=== PATIENT | male | born 1970 | race Caucasian/White ===

== ENCOUNTER 2021-05-23 16:39 | Emergency (ER) | payer SELFPAY ==
[2021-05-23] VITALS (7 sets, daily range): BP systolic 73–137; BP diastolic 59–116; PULSE 154–178; RESP 14–34; TEMP 36.7; O2SAT 84–100; BMI 31.2
[2021-05-23] MEDS: Ondansetron 4 MG/2 ML Vial IV (16:50)
[2021-05-23] MEDS: Morphine 4 MG/ML Syringe IV (16:50)
--- NOTE | 2021-05-23 16:52 | RAD_ITS ---
HISTORY: TRAUMA EXAMINATION/TECHNIQUE: XR Pelvis 1 or 2 Views: AP pelvis COMPARISON: None FINDINGS: Large backboard artifact. No definite fracture or dislocation. No other radiodense foreign bodies. Increased density over the left proximal thigh consistent possible soft tissue edema. RAD/Pelvis 1 or 2 Views IMPRESSION: No acute bony abnormality on single frontal view. If there are left hip symptoms recommend dedicated left hip views. at 1751 Reported and signed by: Jose Elder MD Electronically Signed: Jose Elder MD at 17:50 EDT Tel , Service support ,
--- NOTE | 2021-05-23 16:52 | RAD_ITS ---
STUDY: X-RAY CHEST REASON FOR EXAM: Male, 50 years old. TRAUMA TECHNIQUE: Frontal portable view of the chest COMPARISON: None. FINDINGS: Examination is technically limited. There is left chest wall emphysema and probably large pneumothorax. There is possibly left mediastinum. There are multiple left lateral rib fractures. There is lucency in the right lower lung, possibly anterior pneumothorax versus artifact. Cardiac size is normal. RAD/Chest 1 View (Portable) IMPRESSION: 1. Large left pneumothorax multiple left rib fractures. Electronically Signed: Prashant Leums MD at 17:30 EDT Tel , Service support ,
[2021-05-23] MEDS: Etomidate 20 MG/10 ML Vial IV (16:53)
[2021-05-23] MEDS: Rocuronium Bromide 50 MG/5 ML Vial 100 MG IV (16:53)
--- NOTE | 2021-05-23 16:54 | ED.RN ---
DR. BREWER ORDERS FOR RSI. PT MEDICATED 20MG ETOMIDATE IVP BY CESIA, RN 100MG ROCURIONIUM IVP BY CESIA RN AT 165. ANCEF IV PIGGYBACK THROUGH RIGHT ARM. GLIDESCOPE AT BEDSIDE. INTUBATED BY DR. BREWER AT 1655, SIZE 8CM TUBE, AND 21CM AT LIP. BVM AT 90% SPO2 AT 15L. CHEST TUBE PREP ON LEFT SIDE OF CHEST.
--- NOTE | 2021-05-23 17:00 | RAD_ITS ---
HISTORY: CHEST TUBE PLACEMENT, ETT AND OG PLACEMENT, TRAUMA EXAMINATION/TECHNIQUE: XR Chest 1 View: Portable supine AP chest x-ray COMPARISON: 05/23/21 FINDINGS: LINES/DEVICES: Endotracheal tube tip 9 cm above the alice and should be advanced 3 cm. Enteric tube passes below the diaphragm, tip not visible. Left-sided chest tube in place, tip at the left apex. LUNGS: No definite pneumothorax identified. Low lung volumes with hazy opacities left upper lung field, possible contusion. MEDIASTINUM AND CARDIOVASCULAR STRUCTURES: Cardiac silhouette not enlarged. BONES AND SOFT TISSUES: Multiple left lateral rib fractures, fifth, sixth and seventh ribs. RAD/Chest 1 View (Portable) IMPRESSION: Multiple left rib fractures with left-sided chest tube in place. No definite pneumothorax. Possible lingular contusion/hemorrhage. at 1802 Reported and signed by: Jose Elder MD Electronically Signed: Jose Elder MD at 18:01 EDT Tel , Service support ,
[2021-05-23] MEDS: Cefazolin 1 GM/50 ML BAG IV (17:04)
[2021-05-23] MEDS: Diphth,Pertuss(Acell),Tet Vac 0.5 ML Vial IM (17:04)
--- NOTE | 2021-05-23 17:18 | ED.RN ---
TRAUMA BLOOD INITIATED AT 1715 THROUGH RTAC IV.
--- NOTE | 2021-05-23 17:23 | ED.RN ---
Addendum entered by Destinee Aguirre 05/23/21 17:55: [facility] INITIATED IO. Original Note: ABDOMINAL BINDER APPLIED TO PT PELVIS FOR IMMOBILIZATION. RIGHT HUMERAL IO INITIATED BY [facility], BLOOD MOVED TO RIGHT HUMERAL IO.
--- NOTE | 2021-05-23 17:54 | ED.RN ---
PT PARENTS AND CHILDREN NOTIFIED OF TRANSFER TO [facility] BY TIM JARQUIN.
--- NOTE | 2021-05-23 17:54 | ED.RN ---
PT CELL PHONE GIVEN TO [facility] STAFF.
--- NOTE | 2021-05-23 17:57 | ED.RN ---
FIRST UNIT OF TRAUMA BLOOD STOPPED AT 1730. SECOND UNIT OF TRAUMA BLOOD INITIATED AT 1731, UNIT COMPLETE AT 1740 FOR 2 UNITS TOTAL GIVEN. TXA GIVEN PER [facility]. PT TRANSFERRED OUT OF DEPT AT 1740. VS: BP: 137/82 HR 154 RESPIRES 16 PER BVM AT 15LNRB WITH SPO2 86%. ETCO2 37.
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
== END 2021-05-23 17:40 | disposition short-term general hospital (02) ==
PROVIDERS: Emergency Provider Emergency Medicine
DX: S09.90XA Unspecified injury of head, initial encounter (principal); S27.0XXA Traumatic pneumothorax, initial encounter; J96.90 Respiratory failure, unspecified, unspecified whether with hypoxia or hypercapnia; T79.4XXA Traumatic shock, initial encounter; V53.5XXA Driver of pick-up truck or van injured in collision with car, pick-up truck or van in traffic accident, initial encounter
CPT/HCPCS: 31500; 31720; 32551; 36430; 51702; 71045; 72170; 86850; 86900; 86901; 86920; 86921; 86922; 90715; 94002; 96372; 96374; 96375; 99251; 99285; J7030; J7040; P9016; A4216; G0463; J2405

== ENCOUNTER 2021-11-29 09:29 | Outpatient (RCR) | payer MEDICAID, SELFPAY ==
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
--- NOTE | 2021-11-29 12:25 | HP.OTFCE.D ---
FCE D/C Summary - Discharge [facility] [place] [facility] was seen for a one time visit for an FCE on 11/29/21 and is discharged.
== END 2021-11-29 14:25 | disposition home or self-care (01) ==
LOC: OT 09:29
PROVIDERS: PCP Internal Medicine
DX: I60.9 Nontraumatic subarachnoid hemorrhage, unspecified (principal)
CPT/HCPCS: 97750

== ENCOUNTER → 2022-01-03 | Outpatient (CLI) | payer MEDICAID, SELFPAY ==
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
--- NOTE | 2022-01-03 15:08 | MRI_ITS ---
STUDY: MRI LUMBAR SPINE WITHOUT CONTRAST REASON FOR EXAM: Male, 51 years old. back pain, compression fracture L1, trauma 05/2021 TECHNIQUE: Standardized fat and water weighted pulse sequences were obtained in the sagittal and axial planes. COMPARISON: X-ray 12/15/2019 FINDINGS: T12-L1: Loss of disc height but no disc protrusion, spinal stenosis, or neural foraminal stenosis. Normal lumbar lordosis. There is no substantial scoliosis. Normal conus medullaris that terminates at the T12/L1. Chronic mild wedge compression fracture of the L1 vertebral body with depression of the anterior aspect of the superior endplate and a fracture line extending through the anterior right cortex but no retropulsion into the spinal canal. L1-2: Normal endplates. Normal disc height, hydration and morphology. Normal bilateral facet joints. Normal central canal and bilateral lateral recesses. Normal bilateral intervertebral neural foramina. L2-3: Normal endplates. Normal disc height, hydration and morphology. Normal bilateral facet joints. Normal central canal and bilateral lateral recesses. Normal bilateral intervertebral neural foramina. L3-4: Normal endplates. Normal disc height, hydration and morphology. Normal bilateral facet joints. Normal central canal and bilateral lateral recesses. Normal bilateral intervertebral neural foramina. L4-5: Mild broad disc protrusion with a moderate sized central disc protrusion produces moderate spinal stenosis with moderate lateral recess stenosis with abutment of the L5 nerve roots bilaterally and mild bilateral neural foraminal stenosis. L5-S1: Mild broad disc protrusion produces mild spinal stenosis and mild bilateral neural foraminal stenosis. Normal visualized sacral ala. Normal visualized paraspinous soft tissue structures. MRI/Spine Lumbar (Routine) IMPRESSION: 1. Chronic mild wedge compression fracture of L1 with fracture line extending through the right anterior cortex but no retropulsion into the spinal canal. 2. Degenerative disc disease as described above. Electronically Signed: Facundo Reno MD at 17:40 EDT ,
--- NOTE | 2022-01-03 15:20 | RAD_ITS ---
STUDY: X-RAY - ORBITS REASON FOR EXAM: Male, 51 years old. H/O METAL TO EYES TECHNIQUE: 2 view(s) of the orbits were obtained. COMPARISON: None. FINDINGS: Normal bilateral orbits without a metallic orbital foreign body. Normal visualized facial bones. Normal paranasal sinuses. The soft tissue structures are unremarkable. RAD/Orbits for Foreign Body IMPRESSION: No demonstrated metallic orbital foreign body. The patient is cleared for an MRI examination. Electronically Signed: Jona Marques MD at 15:35 EDT ,
== END | disposition home or self-care (01) ==
PROVIDERS: PCP Internal Medicine; Visit Provider Orthopaedic Surgery
DX: S31.010A Laceration without foreign body of lower back and pelvis without penetration into retroperitoneum, initial encounter (principal); Z87.821 Personal history of retained foreign body fully removed
CPT/HCPCS: 70030; 72146; 72148

== ENCOUNTER → 2022-01-06 | Outpatient (CLI) | payer MEDICAID, SELFPAY ==
--- NOTE | 2022-01-07 05:41 | PFT ---
INTRODUCTION: The patient is a 51-year-old male that presents for pulmonary function studies secondary to a diagnosis of dyspnea. Respiratory therapy reported good patient effort. Bronchodilators were used during testing. INTERPRETATION: Forced expiration spirometry demonstrates no evidence of a large airways obstructive ventilatory defect with a postbronchodilator FEV1/FVC of 75. There was no significant response to aerosolized bronchodilators. Spirograms are of good quality and plateau gradually indicating slow emptying of the lungs. Body plethysmography was performed and revealed a decreased TLC to 5.1 L, 68% of predicted, indicative of a moderate restrictive ventilatory impairment. Diffusing capacity by single breath CO is within normal limits. IMPRESSION: Moderate restrictive ventilatory impairment with preserved diffusing capacity.
== END | disposition home or self-care (01) ==
PROVIDERS: PCP Internal Medicine; Referring Provider Internal Medicine Critical Care Medicine; Visit Provider Internal Medicine Critical Care Medicine
DX: R06.00 Dyspnea, unspecified (principal)
CPT/HCPCS: 94060; 94726; 94729

== ENCOUNTER → 2022-01-11 | Outpatient (CLI) | payer MEDICAID, SELFPAY ==
[2022-01-11 12:30] VITALS: PULSE 102; PULSE 106; PULSE 111; PULSE 115; PULSE 116; PULSE 118; PULSE 119; PULSE 124; O2SAT 96; O2SAT 97; O2SAT 98
--- NOTE | 2022-01-11 13:35 | PCM.PSN.6M ---
PSN 6 Minute Walk Test 6 Minute Walk Test 6 Minute Walk Test: 6 Minute Walk Test PSN:6-Minute Walk Test Start: 01/11/22 12:51 Freq: Status: Active Protocol: [id number].6MINW Document 01/11/22 12:30 EW (Rec: 01/11/22 12:55 EW [id number]) 6 Minute Walk Test Date Performed 01/11/22 Time Performed 12:30 Height 6 ft 4 in Weight: 113.398 kg Weight in Pounds 250.[address]: Dionisio Dhillon Pre-test Oxygen Delivery Method Room Air Pulse Ox (%) 96 Pulse Rate (60-100 beats/min) 102 H Dyspnea Bisi Scale (0-10) 2 Exertion Bisi Scale (6-20) 8 1st minute Oxygen Delivery Method Room Air Pulse Ox (%) 97 Pulse Rate (60-100 beats/min) 111 H 2nd minute Oxygen Delivery Method Room Air Pulse Ox (%) 97 Pulse Rate (60-100 beats/min) 115 H 3rd minute Oxygen Delivery Method Room Air Pulse Ox (%) 97 Pulse Rate (60-100 beats/min) 119 H 4th minute Oxygen Delivery Method Room Air Pulse Ox (%) 98 Pulse Rate (60-100 beats/min) 118 H 5th minute Oxygen Delivery Method Room Air Pulse Ox (%) 98 Pulse Rate (60-100 beats/min) 116 H 6th minute Oxygen Delivery Method Room Air Pulse Ox (%) 98 Pulse Rate (60-100 beats/min) 124 H Post-test Oxygen Delivery Method Room Air Pulse Ox (%) 98 Pulse Rate (60-100 beats/min) 106 H Dyspnea Bisi Scale (0-10) 2 Exertion Bisi Scale (6-20) 8 Full Laps Walked 26 Partial Lap, Number of Tiles Walked 38 Total Distance Walked (ft) 1572 Interpretation Interpretation: The patient was able to ambulate 1572 feet over the course of 6 minutes on room air with no assistive devices or breaks. The patient experienced no significant desaturation, but did have persistent tachycardia throughout testing with a peak heart rate of 124 bpm. These findings are suggestive of a cardiovascular limitation exercise tolerance. Recommendations Recommendations: No supplemental oxygen is indicated at this time.
== END | disposition home or self-care (01) ==
LOC: PSN 12:16
PROVIDERS: PCP Internal Medicine; Visit Provider Internal Medicine Critical Care Medicine
DX: R06.00 Dyspnea, unspecified (principal)
CPT/HCPCS: 94618

== ENCOUNTER 2022-04-03 07:27 | Inpatient (IN) | payer MEDICAID, SELFPAY ==
[2022-04-03] VITALS (11 sets, daily range): BP systolic 123–164; BP diastolic 69–122; PULSE 94–129; RESP 15–20; TEMP 36.8–39.5; O2SAT 93–99; BMI 31.2; BMI 32.3
--- NOTE | 2022-04-03 07:39 | RAD_ITS ---
STUDY: X-RAY CHEST REASON FOR EXAM: Male, 51 years old. Fever. Diaphoresis. Fatigue. TECHNIQUE: Single AP portable view of the chest. COMPARISON: Comparison is made with prior study dated 05/23/2021. FINDINGS: EKG electrodes are seen. Patchy infiltrate is seen in the left upper lobe. Mild increased markings in the left lung base. There is no demonstrated pleural abnormality. Normal size heart. Normal mediastinum and tom. Normal visualized pulmonary arteries. Normal visualized aortic arch and descending thoracic aorta. There are diffuse degenerative changes of the visualized thoracic spine. Normal visualized ribs, clavicles, and shoulders. There is no demonstrated abnormality of the visualized soft tissue structures of the upper abdomen. RAD/Chest 1 View (Portable) IMPRESSION: Patchy infiltrate in the left upper lobe. Mild increased markings at the left lung base. Electronically Signed: Conrad Cohn MD at 8:34 EDT ,
--- NOTE | 2022-04-03 07:39 | EKG12_ITS ---
Test Reason : diaprohetic Blood Pressure : / mmHG Vent. Rate : 112 BPM Atrial Rate : 112 BPM P-R Int : 142 ms QRS Dur : 068 ms QT Int : 316 ms P-R-T Axes : 053 023 022 degrees QTc Int : 431 ms Sinus tachycardia Otherwise normal ECG Confirmed by NAVIN VALERO, ISHAN ([id number]), editor newspaper DOROTHY ALEJANDRO ([id number]) on 04/04/2022 10:24:33 AM Referred By: Ronel Confirmed By:ISHAN HOLDEN MD
--- NOTE | 2022-04-03 07:41 | EX.ED.DYSGE1 ---
HPI History of Present Illness Chief Complaint: General Illness Informant: patient Narrative Narrative: 51-year-old male presenting with fever. Patient states for the past 3 days he has had intermittent fevers. He has had sweating and chills. He took Tylenol 2 hours prior to arrival. He went to urgent care this morning and was sent to the ED for further evaluation. He has a history of diabetes and hypertension. Occasional smoking. Denies drug use. He is not vaccinated for COVID. No known sick contacts. He has decreased appetite. He has had diarrhea. He denies vomiting or abdominal pain. Denies chest pain or shortness of breath. Denies cough. Prior similar symptoms: No Recent Illness/Hospitalization: No PFSH REPLACED BY [facility] Medical History (Updated 04/03/22 @ 10:[address] Josephine Winter MD) Diabetes Hypertension Home Medications glimepiride 2 mg tablet 2 mg PO DAILY 12/08/21 [History Last Taken Unknown] metformin 1,000 mg tablet 1,000 mg PO DAILY 12/08/21 [History Last Taken Unknown] amlodipine 5 mg tablet 1 tab PO DAILY 04/03/22 [History Last Taken Unknown] Allergy/AdvReac Type Severity Reaction Status Date / Time No Known Allergies Allergy Verified 04/03/22 07:30 Surgical History (Updated 04/03/22 @ 09:[address] Jael Rodney MD) H/O splenectomy History of back surgery Social History current occupation: Unable to obtain Smoking Status: Current some day smoker tobacco type: cigarettes ROS ROS ED Constitutional Constitutional ED: Reports chills, fever(s) and sweats Eyes Eyes: Denies change in vision ENT ENT ED: Denies ear pain, rhinorrhea or sore throat Cardiovascular Cardiovascular: Denies chest pain Respiratory/Chest Respiratory/Chest: Denies cough, dyspnea or dyspnea on exertion Gastrointestinal Gastrointestinal: Reports diarrhea; Denies abdominal pain, constipation, melena, nausea or vomiting Genitourinary Genitourinary ED: Denies dysuria Musculoskeletal Musculoskeletal: Reports other Details: chronic back pain Integumentary Denies rash Neurologic Neurologic: Denies headache(s) Psychiatric Psychiatric: Denies suicidal ideation Allergic/Immunologic Allergic/Immunologic ED: Denies urticaria EXAM Physical Exam Const Vital Signs: 04/03/22 07:28 04/03/22 07:45 04/03/22 09:27 Temperature 98.2 F Temperature Source Temporal Pulse Rate 121 H 102 H Respiratory Rate 18 19 H Respiratory Pattern Normal Blood Pressure 160/122 H 149/81 H Blood Pressure Mean 134 103 Pulse Ox 99 99 Oxygen Delivery Method Room Air Room Air Positive well nourished and well developed General Appearance ED: well developed HEENT Reports normocephalic, head/scalp atraumatic and moist mucous membranes Eyes PERRL and EOMs intact bilaterally Neck supple Neck Narrative: No meningismus General: Negative for tenderness Chest Wall inspection of chest normal Resp normal respiratory effort and clear to auscultation bilaterally Cardio regular rhythm Rate: tachycardic GI non-tender and non-distended Palpation: soft; Negative for tender, guarding or rebound tenderness present no CVA tenderness Extremity normal to inspection Neuro oriented x3 Sensorium / Orientation: alert Psych mental status grossly normal Skin Skin Narrative: Diaphoretic MDM MDM MDM Narrative Medical decision making narrative: Patient was given IV fluids. CBC unremarkable. Chemistry showed creatinine 1.84, glucose 195. Previous creatinine 1.29 per clinisync. Troponin 86. Liver enzymes are normal. Chest x-ray read by myself and radiology shows patchy infiltrate left upper lobe mild increased markings left lung base. COVID is negative. EKG shows sinus tachycardia rate of 112 with no acute ischemic changes. Blood cultures were sent. History of splenectomy. He was given vancomycin and Rocephin IV. Lactic acid is normal. Patient is feeling improved but remains tachycardic. Discussed with hospitalist for admission. Lab Data Attestation: I reviewed the patient's lab results. Labs: Laboratory Results - last 24 hr 04/03/22 04/03/22 04/03/22 08:04 08:04 09:12 WBC 8.8 RBC 5.17 Hgb 15.2 Hct 45.8 MCV 88.6 MCH 29.4 MCHC 33.2 RDW Std Deviation 44.4 H RDW Coeff of Demi 13.6 Plt Count 344 MPV 10.2 Immature Gran % (Auto) 0.600 Neut % (Auto) 77.4 H Lymph % (Auto) 14.1 L [place] % (Auto) 6.8 Eos % (Auto) 0.3 Baso % (Auto) 0.8 Absolute Neuts (auto) 6.8 Absolute Lymphs (auto) 1.24 Nucleated RBC % 0 Sodium 134 L Potassium 3.8 Chloride 97 L Carbon Dioxide 27.0 Anion Gap 10 BUN 16 Creatinine 1.84 H Estim Creat Clear Calc 57.40 Est GFR (MDRD) Af Amer 50 L Est GFR (MDRD) Non-Af 42 L BUN/Creatinine Ratio 8.7 L Glucose 185 H Lactic Acid 0.8 Calcium 9.4 Total Bilirubin 0.20 AST 35 ALT 52 Alkaline Phosphatase 96 Troponin I High Sens 86 H Total Protein 9.1 H Albumin 3.9 Globulin 5.2 H Albumin/Globulin Ratio 0.8 L Radiography Chest X-Ray - ED: 1 View, Read by ED Physician and Read by Radiologist Diagnostic Testing: Clinical Impression(s) from Imaging Studies Chest X-Ray 04/03/22 07:39 IMPRESSION: Patchy infiltrate in the left upper lobe. Mild increased markings at the left lung base. Electronically Signed: Conrad Cohn MD at 8:34 EDT , EKG Initial EKG: Attestation: I personally reviewed and interpreted this EKG as follows: Interpretation: No Acute Injury Pattern and Sinus Tachycardia Discharge Plan Dx/Rx/DC Orders Clinical Impression: Pneumonia, JESSICA (acute kidney injury), Elevated troponin, History of splenectomy Disposition Disposition: Acute Care [facility]
--- NOTE | 2022-04-03 07:43 | NURSING ---
NO OLD EKGS
[2022-04-03] MEDS: 0.9% Normal Saline 1,000 ML 1000 ML IV (07:51)
[2022-04-03 08:20] LABS: Absolute Lymphocyte Count 1.24 X10^3/uL (0.83-4.51); Absolute Neutrophil Count 6.8 X10^3/uL (2.0-7.7); Basophil# 0.07 X10^3/uL; Basophil% 0.8 % (0-1); Eosinophil# 0.03 X10^3/uL; Eosinophils% 0.3 % (0-5); Hematocrit 45.8 % (40-54); Hemoglobin 15.2 g/dL (13.0-16.5); Lymphocyte # 1.24 X10^3/ul (0.83-4.51); Lymphocyte % 14.1 % (19-41); Mean Corp Hgb Conc 33.2 g/dL (32-36); Mean Corpuscular Hgb 29.4 pg (27.0-32.0); Mean Corpuscular Volume 88.6 fL (80-94); Mean Platelet Vol. 10.2 fl (6.2-12.0); Monocyte% 6.8 % (0-10); NRBC Flagged by Analyzer 0 % (0-5); Neutrophil # 6.83 X10^3/uL (2.7-7.7); Neutrophil % 77.4 % (47-70); Platelet Count 344 K/mm3 (150-450); RBC Distribution Width CV 13.6 % (11.6-14.6); RBC Distribution Width SD 44.4 fl (35.1-43.9); Red Blood Count 5.17 M/mm3 (4.6-6.2); White Blood Count 8.8 K/mm3 (4.4-11.0)
[2022-04-03 08:43] LABS: ALB/GLOB Ratio 0.8 RATIO (0.9-2.4); AST(SGOT) 35 U/L (15-37); Alanine Aminotransfer ALT/SGPT 52 U/L (16-61); Albumin, Serum 3.9 g/dL (3.2-5.0); Alkaline Phosphatase 96 U/L (45-117); Anion Gap 10 (5-15); BUN 16 mg/dL (7-18); BUN/Creat Ratio 8.7 RATIO (10-20); Calcium,Total 9.4 mg/dL (8.5-10.1); Chloride 97 mmol/L (98-107); Creatinine, Serum 1.84 mg/dL (0.70-1.30); EST Glomerular Filtration Rate 42 mL/min (>60); Est Glom Filt Rate - Afr Amer 50 mL/min (>60); Globulin 5.2 g/dL (2.2-4.2); Glucose 185 mg/dL (74-106); Potassium 3.8 mmol/L (3.5-5.1); Protein, Total 9.1 g/dL (6.4-8.2); Sodium Level 134 mmol/L (136-145); Troponin-I HS (w/2H Reflex) 86 pg/mL (3.0-78.0)
[2022-04-03 09:52] LABS: Lactic Acid 0.8 mmol/L (0.4-1.9)
--- NOTE | 2022-04-03 10:04 | HP.PCM.HOS_ITS ---
HPI - General General Date of Admission: 04/03/22 Date of Service: 04/03/22 Chief Complaint: fwvwe HPI Narrative AUBRIE LONGORIA, is a 51 M with a PMh as outlined who presents via the ED on 04/03/2022 with a complaint of fever, increased sweating and chills. His symptoms had been going on for about 3 days prior to admission, with intermittent fevers and chills. He denied any chest pain, palpitations, dizziiness, nausea or vomiting or diarrhea. Review of systems was otherwise negative. He went to an urgent care center, but was sent to the ED because he looked too unwell. Vitals in the ED were blood pressure 149/81, pulse rate of 102 respiratory rate of 19. He was saturating at 99% on room air. Temperature was 98.2 Fahrenheit. CBC showed WBC of 8.8 with hemoglobin of 15.2 and platelets of 344. Chemistry showed sodium of 134 with potassium of 3.8 and creatinine of 1.84. Baseline creatinine is unknown. Initial troponin was 86. Chest x-ray showed patchy infiltrate in the left upper lobe. He was started on IV vancomycin and ceftriaxone on account of his history of splenectomy due to an allergy a year ago. He has been admitted to be managed for community-acquired pneumonia. [facility] Medical History (Updated 04/03/22 @ 10:[address] Josephine Winter MD) Diabetes Hypertension Home Medications glimepiride 2 mg tablet 2 mg PO DAILY diabetes 12/08/21 [History Last Taken 04/03/22 06:00 2 mg] metformin 1,000 mg tablet 1,000 mg PO BID diabetes 12/08/21 [History Last Taken 04/03/22 06:00 1000 mg] amlodipine 5 mg tablet 1 tab PO DAILY blood pressure 04/03/22 [History Last Taken 04/03/22 06:00 5 mg] Allergy/AdvReac Type Severity Reaction Status Date / Time No Known Allergies Allergy Verified 04/03/22 07:30 Surgical History (Updated 04/03/22 @ 09:[address] Jael Rodney MD) H/O splenectomy History of back surgery Social History current occupation: Unable to obtain Smoking Status: Current some day smoker tobacco type: cigarettes ROS Constitutional Constitutional: Reports anorexia, chills, fatigue, fever(s), malaise and weakness; Denies change in weight Eyes Eyes: Denies change in vision ENT HEENT: Denies dysphagia, headache(s) or sore throat Cardiovascular Cardiovascular: Reports rapid heart rate; Denies chest pain, dyspnea on exertion, edema, lightheadedness, orthopnea, palpitations or syncope Respiratory/Chest Respiratory/Chest: Reports cough; Denies dyspnea, excessive phlegm production, hemoptysis, productive cough, shortness of breath at rest, shortness of breath with exertion or wheezing Gastrointestinal Gastrointestinal: Denies abdominal pain, diarrhea, dyspepsia, nausea or vomiting Genitourinary Genitourinary: Denies burning urination or dysuria Musculoskeletal Musculoskeletal: Denies arthralgias Neurologic Neurologic: Denies confusion, dizziness, focal weakness or seizures Psychiatric Psychiatric: Denies anxiety Endocrine Endocrinology: Denies change in body appearance Vital Signs Vital Signs Vital Signs: 04/03/22 07:28 04/03/22 07:45 04/03/22 09:27 Temperature 98.2 F Temperature Source Temporal Pulse Rate 121 H 102 H Respiratory Rate 18 19 H Respiratory Pattern Normal Blood Pressure 160/122 H 149/81 H Blood Pressure Mean 134 103 Pulse Ox 99 99 Oxygen Delivery Method Room Air Room Air Weight Weight: 250 lb Body Mass Index (BMI) 31.2 Physical Exam Const alert, oriented x3 and no apparent distress HEENT normocephalic, head/scalp atraumatic and hearing grossly normal bilaterally HEENT Narrative: dry oral mucosa membranes Mouth: oral and palatal mucosa normal Eyes PERRL, EOMs intact bilaterally and conjunctivae normal Neck no lymphadenopathy and supple Resp Resp Narrative: diminished breath sounds bibasally, no wheezes or crackles. on room air. Cardio regular rhythm, S1 normal heart sound, S2 normal heart sound and no murmurs Cardio Narrative: tachycardic GI normal to inspection, nondistended, normoactive bowel sounds, soft to palpation, non-tender and non-distended Extremity normal to inspection, full ROM and no clubbing, cyanosis or edema Neuro oriented x3, CN's II-XII intact bilaterally, moves all extremities and no focal motor deficits Sensorium / Orientation: awake and alert Psych affect normal Results Lab / Micro Data Result Diagrams: 04/03/22 08:04 04/03/22 08:04 Labs: Laboratory Results - last 24 hr 04/03/22 08:04: WBC 8.8, RBC 5.17, Hgb 15.2, Hct 45.8, MCV 88.6, MCH 29.4, MCHC 33.2, RDW Std Deviation 44.4 H, RDW Coeff of Demi 13.6, Plt Count 344, MPV 10.2, Immature Gran % (Auto) 0.600, Neut % (Auto) 77.4 H, Lymph % (Auto) 14.1 L, [place] % (Auto) 6.8, Eos % (Auto) 0.3, Baso % (Auto) 0.8, Absolute Neuts (auto) 6.8, Absolute Lymphs (auto) 1.24, Nucleated RBC % 0 04/03/22 08:04: Sodium 134 L, Potassium 3.8, Chloride 97 L, Carbon Dioxide 27.0, Anion Gap 10, BUN 16, Creatinine 1.84 H, Estim Creat Clear Calc 57.40, Est GFR (MDRD) Af Amer 50 L, Est GFR (MDRD) Non-Af 42 L, BUN/Creatinine Ratio 8.7 L, Gl ucose 185 H, Calcium 9.4, Total Bilirubin 0.20, AST 35, ALT 52, Alkaline Phosphatase 96, Troponin I High Sens 86 H, Total Protein 9.1 H, Albumin 3.9, Globulin 5.2 H, Albumin/Globulin Ratio 0.8 L 04/03/22 09:12: Lactic Acid 0.8 Micro: Microbiology 04/03/22 07:50 Nasal Secretion SARS-CoV-2 Antigen (Rapid) - Final Radiology Impression Chest X-Ray 04/03/22 07:39 IMPRESSION: Patchy infiltrate in the left upper lobe. Mild increased markings at the left lung base. Electronically Signed: Conrad Cohn MD at 8:34 EDT , Assessment & Plan Assessment/Plan (1) Community acquired pneumonia: PLAN: Plan #Community acquired pneumonia * admit to med surg * hydrate gently with IVF * check urine for strep and legionella * check blood and sputum cultures * IV levofloxacin * oxygen as needed to maintain sats >90% * #JESSICA * Cr is 1.8, baseline Cr as checked from Clinis[facility] is 1.2 * likely pre-renal due to decreased intake and dehydration * hydrate gently with IVF and trend Cr * if Cr doesnt trend downwards, will do further workup for JESSICA including checking renal USG and checking urine electrolytes * #Hyperrtension: on amlodipine #Type 2 diabetes mellitus * hold metformin and glimepiride o/a of JESSICA * ISS. Accuchecks ACHS * DVT prophylaxis: lovenox, renally dosed COde status: full code * Patient counseled extensively about different types of CODE STATUS including full code, DNR CCA and DNR CCA. Patient elects to be full code. * Total [id number] time 16 minutes. Charges/Coding Visit Charges Inpatient E&M: 23486 Init Hosp L3 Procedures Hospitalists Procedures: 27687 Advncd Care Plan 30 Min
--- NOTE | 2022-04-03 10:06 | NURSING ---
DR YVES BOONE
[2022-04-03 10:14] LABS: Reflex Troponin-HS? (from REC) Y
--- NOTE | 2022-04-03 10:27 | NURSING ---
MED SURG OBS KORAM PNEUMONIA, JESSICA
[2022-04-03 11:17] LABS: Troponin-I HS 60 pg/mL (3.0-78.0)
[2022-04-03] MEDS: Insulin Lispro 100 UNIT/ML INSULN.PEN SC ×2 (13:00→21:42)
[2022-04-03 13:11] LABS: Bedside Glucose 161 mg/dL (74-106)
[2022-04-03 14:22] LABS: M R Staph aureus DNA By PCR Negative (Negative); Probe Check PASS; Specimen Processing Control PASS
[2022-04-03 14:29] LABS: Mucous, Urine 0 SEEN /hpf (<or=2+)
[2022-04-03] MEDS: Acetaminophen 325 MG Tablet 650 MG PO ×2 (14:30→20:35)
[2022-04-03 14:33] LABS: Color, Urine Yellow (Yellow); Glucose, Dipstick Normal (Normal); Ketone-Dipstick Negative (Negative); Leukocyte Esterase-Dipstick 25 /ul (Negative); Nitrite-Dipstick Negative (Negative); Occult Blood-Urine 25 /ul (Negative); Protein-Dipstick 100 mg/dl (Negative); Specific Gravity, Urine 1.025 (1.002-1.030); Urine Bilirubin Dipstick Negative (Negative); Urine Clarity Sl. Cloudy (Clear); Urine Urobilinogen Normal (Normal)
[2022-04-03 14:41] LABS: Bacteria 1+ /hpf (None Seen); Red Blood Cells-Urine 0-5 SEEN /hpf (0-5); Squamous Epithelial Cells - UA 0-5 SEEN /hpf (0-5); White Blood Cells 0-5 SEEN /hpf (0-5)
[2022-04-03] MEDS: 0.9% Normal Saline 1,000 ML 150 ML IV ×2 (16:01→23:00)
[2022-04-03 16:41] LABS: Bedside Glucose 134 mg/dL (74-106)
[2022-04-03] MEDS: Labetalol (Prefilled) 20 MG/4 ML 10 MG IV (20:35)
[2022-04-03 22:15] LABS: Bedside Glucose 179 mg/dL (74-106)
[2022-04-04] VITALS (16 sets, daily range): BP systolic 114–148; BP diastolic 59–91; PULSE 108–132; RESP 14–18; TEMP 36.9–39.1; O2SAT 93–95
[2022-04-04] MEDS: Acetaminophen 325 MG Tablet 650 MG PO ×4 (02:36→23:02)
[2022-04-04 06:35] LABS: Absolute Lymphocyte Count 1.06 X10^3/uL (0.83-4.51); Absolute Neutrophil Count 6.6 X10^3/uL (2.0-7.7); Basophil# 0.05 X10^3/uL; Basophil% 0.6 % (0-1); Eosinophil# 0.02 X10^3/uL; Eosinophils% 0.2 % (0-5); Hematocrit 37.8 % (40-54); Hemoglobin 12.5 g/dL (13.0-16.5); Lymphocyte # 1.06 X10^3/ul (0.83-4.51); Lymphocyte % 12.9 % (19-41); Mean Corp Hgb Conc 33.1 g/dL (32-36); Mean Corpuscular Hgb 28.8 pg (27.0-32.0); Mean Corpuscular Volume 87.1 fL (80-94); Mean Platelet Vol. 10.5 fl (6.2-12.0); Monocyte# 0.45 X10^3/uL; Monocyte% 5.5 % (0-10); NRBC Flagged by Analyzer 0 % (0-5); Neutrophil # 6.63 X10^3/uL (2.7-7.7); Neutrophil % 80.4 % (47-70); Platelet Count 278 K/mm3 (150-450); RBC Distribution Width CV 13.7 % (11.6-14.6); RBC Distribution Width SD 43.5 fl (35.1-43.9); Red Blood Count 4.34 M/mm3 (4.6-6.2); White Blood Count 8.2 K/mm3 (4.4-11.0)
[2022-04-04 07:01] LABS: Anion Gap 9 (5-15); BUN 15 mg/dL (7-18); BUN/Creat Ratio 9.3 RATIO (10-20); Calcium,Total 8.3 mg/dL (8.5-10.1); Chloride 100 mmol/L (98-107); Creatinine, Serum 1.62 mg/dL (0.70-1.30); EST Glomerular Filtration Rate 48 mL/min (>60); Est Glom Filt Rate - Afr Amer 58 mL/min (>60); Estimated Creatinine Clearance 61.65 ml/min; Glucose 150 mg/dL (74-106); Potassium 3.8 mmol/L (3.5-5.1); Sodium Level 133 mmol/L (136-145)
[2022-04-04] MEDS: levoFLOXacin IV 750 MG/150 ML BAG 100 MG IV (09:34)
[2022-04-04] MEDS: Enoxaparin 40 MG/0.4 ML Syringe SC (09:35)
[2022-04-04] MEDS: amLODIPine 5 MG Tablet PO (09:35)
--- NOTE | 2022-04-04 10:36 | ECHOD_ITS ---
Reason For Study: Arrhythmia Procedure This was a 2D Doppler, Color Flow transthoracic echocardiogram. The study was technically difficult. Exam performed portable in patient room. Left Ventricle Normal LV size. Left ventricular systolic function is normal. The estimated ejection fraction is 55 %. Transmitral doppler flow suggestive of impaired relaxation of left ventricle. No regional wall motion abnormalities noted. Right Ventricle Normal RV size. Normal systolic function. Atria Normal left atrium. Normal right atrium. No doppler evidence for ASD. Mitral Valve There is no mitral annular calcification. Normal mitral valve. Trivial mitral valve insufficiency. Tricuspid Valve Normal tricuspid valve. Trivial tricuspid valve insufficiency. Unable to estimate RV systolic pressure due to insufficient tricuspid regurgitant envelope. Aortic Valve Trisinus/trileaflet aortic valve. Normal aortic valve. Pulmonic Valve The pulmonic valve is not well visualized. Great Vessels Normal sized aortic root. Pericardium/Pleural No pericardial effusion. MMode/2D Measurements & Calculations LVIDd: 5.1 cm IVSd: 1.3 cm Ao root diam: 3.2 cm LVIDs: 3.9 cm LVPWd: 1.3 cm LA dimension: 4.3 cm RVDd: 4.2 cm FS: 24.0 % LAV(MOD-bp): 49.9 ml LA A4 area: 16.4 cm2 RA A4 area: 12.0 cm2 LAV(MOD-bp) Indexed: 23.5 ml/m2 LAV(MOD-sp2): 54.6 ml LAV(MOD-sp4): 41.6 ml Time Measurements MV dec time: 0.19 sec Doppler Measurements & Calculations MV E max humberto: 76.8 cm/sec Lat Peak E' Humberto: 10.5 cm/sec Med Peak E' Humberto: 9.6 cm/sec MV A max humberto: 92.7 cm/sec E/E' lat: 7.3 E/E' med: 8.0 MV E/A: 0.83 Ao V2 max: 134.6 cm/sec LV V1 max: 117.5 cm/sec PA V2 max: 98.7 cm/sec Ao max P.3 mmHg LV V1 max P.5 mmHg PA V2 mean: 74.9 cm/sec Ao V2 mean: 98.9 cm/sec LV V1 mean P.5 mmHg Ao mean P.4 mmHg LV V1 mean: 88.6 cm/sec Ao V2 VTI: 23.5 cm LV V1 VTI: 20.6 cm ECHO/Echo Complete Interpretation Summary Left ventricular systolic function is normal. The estimated ejection fraction is 55 %. Trivial mitral valve insufficiency. Trivial tricuspid valve insufficiency. Unable to estimate RV systolic pressure due to insufficient tricuspid regurgita nt envelope. Transmitral doppler flow suggestive of impaired relaxation of left ventricle Ordering Physician: Josephine Winter Referring Physician: Lana Mullen Performed By: Claudio Shrestha RCS
--- NOTE | 2022-04-04 10:48 | CASEMGMT ---
RN KELSEY Assessment: Face to Face with pt for initial transition planning/care coordination assessment. RN CM introduced self and role at [facility], pt voices understanding and consents to assessment. Pt is A/O x4 and answers all questions appropriately at this time. Pt lying in bed with father at bedside on RA in no distress. Nurse in room at end of assessment. Care providers, pharmacy, and demographics verified/updated. Admitting Dx: CAP PCP: [facility] Specialists:Dennis Barnard, uro; Lizzie, ortho; Owen, ortho; Ainsley, neuro Preferred Pharmacy: [facility] [place] Insurance: [employer] Prescription Benefit: yes LW/HPOA: Pt denies having a LW/DPOA and denies need for info regarding AD. LNOK: Nisreen/Titi De La Torre, parents Living Arrangements: Pt lives alone in a two story house with 3 steps to enter with a rail. Pt reports he is I in ADL's and denies concerns at home. Transportation: Pt drives self and denies concerns with transportation. DME/HHC/SNF: Pt denies having any DME in the home. Pt denies hx of HHC. Pt has been to [facility] in the past. Pt states no concerns with going home at time of dc. Pt states no further concerns/needs. CM to follow. Advised pt to ask CM if any further question/concerns/needs arise, voices understanding. Pt Goal: Home Plan: Home
[2022-04-04] MEDS: Metoprolol Tartrate 25 MG Tablet PO ×2 (10:52→19:47)
--- NOTE | 2022-04-04 10:52 | PN.HOSP_ITS ---
Subjective Subjective Patient seen and examined. He had no active complaints today and had started feeling better. He denied any chills, nausea, vomiting or diarrhea or any other symptoms. He has been tachycardic, with HR going up into the 150s and 160s with exertion. This appears to be chronic; he says he has never been worked up for t his. He also developed fever overnight. He remains febrile this morning, with temp of 101.1F. Review of systems is otherwise negative. Objective Data Objective Data Vital Signs: Vital Signs Temp Pulse Resp BP Pulse Ox O2 Del Method 101.1 F H 122 H 18 114/59 L 94 Room Air 04/04/22 09:24 04/04/22 09:24 04/04/22 09:24 04/04/22 09:24 04/04/22 09:24 04/04/22 09:24 Oxygen Delivery Method Room Air Weight: 248 lb 0.321 oz Body Mass Index (BMI) 32.3 Intake & Output: Intake and Output for Last 24 Hours 04/02/22 04/03/22 04/04/22 23:59 23:59 23:59 Intake Total 2790 / 3390 2100 / 2100 Balance 2790 / 3390 2100 / 2100 Lab / Micro Data Result Diagrams: 04/04/22 05:35 04/04/22 05:35 Labs: Laboratory Results - last 24 hr 04/03/22 10:40: Troponin I High Sens 60 04/03/22 12:50: POC Glucose 161 H 04/03/22 12:55: MRSA (PCR) Negative 04/03/22 14:17: Urine Color Yellow, Urine Clarity Sl. Cloudy, Urine pH 5.0, Ur Specific [place] 1.025, Urine Protein 100 H, Urine Glucose (UA) Normal, Urine Ketones Negative, Urine Occult Blood 25 H, Urine Nitrite Negative, Urine Bilirubin Negative, Urine Urobilinogen Normal, Ur Leukocyte Esterase 25 H, Urine RBC 0-5 SEEN, Urine WBC 0-5 SEEN, Ur Squamous Epith Cells 0-5 SEEN, Urine Bacteria 1+, Urine Mucus 0 SEEN 04/03/22 16:09: POC Glucose 134 H 04/03/22 21:40: POC Glucose 179 H 04/04/22 05:35: Sodium 133 L, Potassium 3.8, Chloride 100, Carbon Dioxide 24.0, Anion Gap 9, BUN 15, Creatinine 1.62 H, Estim Creat Clear Calc 61.65, Est GFR (MDRD) Af Amer 58 L, Est GFR (MDRD) Non-Af 48 L, BUN/Creatinine Ratio 9.3 L, Glucose 150 H, Calcium 8.3 L 04/04/22 05:35: WBC 8.2, RBC 4.34 L, Hgb 12.5 L, Hct 37.8 L, MCV 87.1, MCH 28.8, MCHC 33.1, RDW Std Deviation 43.5, RDW Coeff of Demi 13.7, Plt Count 278, MPV 10.5, Immature Gran % (Auto) 0.400, Neut % (Auto) 80.4 H, Lymph % (Auto) 12.9 L, [place] % (Auto) 5.5, Eos % (Auto) 0.2, Baso % (Auto) 0.6, Absolute Neuts (auto) 6.6, Absolute Lymphs (auto) 1.06, Nucleated RBC % 0 Micro: Microbiology 04/03/22 14:17 Urine, Random Streptococcus pneumoniae Antigen (M - Final 04/03/22 14:17 Urine, Random Legionella Antigen - Final 04/03/22 07:50 Nasal Secretion SARS-CoV-2 Antigen (Rapid) - Final Physical Exam Const alert, oriented x3 and no apparent distress HEENT normocephalic, head/scalp atraumatic and hearing grossly normal bilaterally Eyes PERRL, EOMs intact bilaterally and conjunctivae normal Neck no lymphadenopathy and supple Resp Resp Narrative: diminished breath sounds bibasally, no wheezes or crackles. on room air. Cardio regular rhythm, S1 normal heart sound, S2 normal heart sound and no murmurs Cardio Narrative: still tachycardic GI normal to inspection, nondistended, normoactive bowel sounds, soft to palpation, non-tender and non-distended Extremity normal to inspection, full ROM and no clubbing, cyanosis or edema Neuro oriented x3, CN's II-XII intact bilaterally, moves all extremities and no focal motor deficits Sensorium / Orientation: awake and alert Psych affect normal Assessment & Plan Assessment/Plan (1) Community acquired pneumonia: PLAN: Plan #Community acquired pneumonia * on IV levofloxacin and cefepime due to his history of splenectomy * blood and sputum cultures pending * on room air. Titrate oxygen as needed to maintain sats >90% * #Sinus tachycardia * rmains persistently tachycardic, with HR going up into the 150s-160s * will check TSH, and order 2D echo * sinus tachycardia seems to be chronic, and was present in 2020, from EMR. PE is therefore less likely * will start PO metoprolol 25mg bid * #JESSICA * CR is down to 1.62 today, from 1.8 * baseline Cr is 1.2 * likely pre-renal due to decreased intake and dehydration * hydrate gently with IVF and trend Cr * #Hypertension: on amlodipine. Metoprolol added on due to sinus tachycardia #Type 2 diabetes mellitus * hold metformin and glimepiride o/a of JESSICA * ISS. Accuchecks ACHS * DVT prophylaxis: lovenox, renally dosed COde status: full code * Patient counseled extensively about different types of CODE STATUS including full code, DNR CCA and DNR CCA. Patient elects to be full code. * Total [id number] time 16 minutes. Charges/Coding Visit Charges Inpatient E&M: 42169 Subs Hosp L3
[2022-04-04] MEDS: Insulin Lispro 100 UNIT/ML INSULN.PEN SC ×2 (11:01→16:30)
[2022-04-04 11:04] LABS: Thyroid Stim Hormone (TSH) 1.34 uIU/mL (0.358-3.74)
[2022-04-04 11:35] LABS: Bedside Glucose 221 mg/dL (74-106)
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
[2022-04-04 17:00] LABS: Bedside Glucose 184 mg/dL (74-106)
[2022-04-04 21:40] LABS: Bedside Glucose 140 mg/dL (74-106)
[2022-04-04] MEDS: 0.9% Saline Lock 10 ML Syringe IV (23:08)
--- NOTE | 2022-04-04 23:21 | NURSING ---
placed ice packs to axillary and behind neck, cool cloth to forehead for temp, encouraged IS, PEP use, fluids, took tyl per order
[2022-04-05] VITALS (13 sets, daily range): BP systolic 117–145; BP diastolic 74–90; PULSE 85–116; RESP 16–18; TEMP 36.6–39.3; O2SAT 94–97
[2022-04-05] MEDS: Acetaminophen 325 MG Tablet 650 MG PO ×2 (05:25→14:14)
[2022-04-05 05:56] LABS: Bedside Glucose 158 mg/dL (74-106)
[2022-04-05 07:00] LABS: Absolute Lymphocyte Count 1.25 X10^3/uL (0.83-4.51); Absolute Neutrophil Count 7.7 X10^3/uL (2.0-7.7); Basophil# 0.05 X10^3/uL; Basophil% 0.5 % (0-1); Eosinophil# 0.03 X10^3/uL; Eosinophils% 0.3 % (0-5); Hematocrit 44.2 % (40-54); Hemoglobin 14.8 g/dL (13.0-16.5); Lymphocyte # 1.25 X10^3/ul (0.83-4.51); Lymphocyte % 13.1 % (19-41); Mean Corp Hgb Conc 33.5 g/dL (32-36); Mean Corpuscular Hgb 29.2 pg (27.0-32.0); Mean Corpuscular Volume 87.4 fL (80-94); Mean Platelet Vol. 11.6 fl (6.2-12.0); Monocyte# 0.43 X10^3/uL; Monocyte% 4.5 % (0-10); NRBC Flagged by Analyzer 0 % (0-5); Neutrophil # 7.73 X10^3/uL (2.7-7.7); Neutrophil % 81.2 % (47-70); Platelet Count 254 K/mm3 (150-450); RBC Distribution Width CV 13.9 % (11.6-14.6); RBC Distribution Width SD 44.5 fl (35.1-43.9); Red Blood Count 5.06 M/mm3 (4.6-6.2); White Blood Count 9.5 K/mm3 (4.4-11.0)
[2022-04-05 07:38] LABS: Anion Gap 10 (5-15); BUN 20 mg/dL (7-18); BUN/Creat Ratio 11.4 RATIO (10-20); Calcium,Total 9.1 mg/dL (8.5-10.1); Chloride 98 mmol/L (98-107); Creatinine, Serum 1.75 mg/dL (0.70-1.30); EST Glomerular Filtration Rate 44 mL/min (>60); Est Glom Filt Rate - Afr Amer 53 mL/min (>60); Estimated Creatinine Clearance 57.07 ml/min; Glucose 166 mg/dL (74-106); Potassium 3.9 mmol/L (3.5-5.1); Sodium Level 132 mmol/L (136-145)
[2022-04-05] MEDS: amLODIPine 5 MG Tablet PO (07:48)
[2022-04-05] MEDS: Metoprolol Tartrate 25 MG Tablet PO ×2 (07:48→22:51)
[2022-04-05] MEDS: Enoxaparin 40 MG/0.4 ML Syringe SC (07:48)
[2022-04-05] MEDS: levoFLOXacin IV 750 MG/150 ML BAG 100 MG IV (09:43)
[2022-04-05] MEDS: Insulin Lispro 100 UNIT/ML INSULN.PEN SC ×2 (11:02→22:52)
--- NOTE | 2022-04-05 11:16 | PN.HOSP_ITS ---
Subjective Subjective Patient seen and examined. He has no active complaints today. He is starting to feel better. Tachycardia has improved. He denies any fever, chills, nausea, vomiting or diarrhea. Review of systems is otherwise negative. He was having a fever overnight, but it has resolved this morning. Objective Data Objective Data Vital Signs: Vital Signs Temp Pulse Resp BP Pulse Ox O2 Del Method 98.7 F 95 16 124/76 H 94 Room Air 04/05/22 07:51 04/05/22 07:51 04/05/22 07:51 04/05/22 07:51 04/05/22 08:29 04/05/22 08:29 Oxygen Delivery Method Room Air Weight: 248 lb 0.321 oz Body Mass Index (BMI) 32.3 Intake & Output: Intake and Output for Last 24 Hours 04/03/22 04/04/22 04/05/22 23:59 23:59 23:59 Intake Total 2790 / 3390 3150 / 3150 126 / 126 Balance 2790 / 3390 3150 / 3150 126 / 126 Lab / Micro Data Result Diagrams: 04/05/22 05:45 04/05/22 05:45 Labs: Laboratory Results - last 24 hr 04/04/22 10:59: POC Glucose 221 H 04/04/22 16:27: POC Glucose 184 H 04/04/22 21:19: POC Glucose 140 H 04/05/22 05:27: POC Glucose 158 H 04/05/22 05:45: Sodium 132 L, Potassium 3.9, Chloride 98, Carbon Dioxide 24.0, Anion Gap 10, BUN 20 H, Creatinine 1.75 H, Estim Creat Clear Calc 57.07, Est GFR (MDRD) Af Amer 53 L, Est GFR (MDRD) Non-Af 44 L, BUN/Creatinine Ratio 11.4, Glucose 166 H, Calcium 9.1 04/05/22 05:45: WBC 9.5, RBC 5.06, Hgb 14.8, Hct 44.2, MCV 87.4, MCH 29.2, MCHC 33.5, RDW Std Deviation 44.5 H, RDW Coeff of Demi 13.9, Plt Count 254, MPV 11.6, Immature Gran % (Auto) 0.400, Neut % (Auto) 81.2 H, Lymph % (Auto) 13.1 L, Clark % (Auto) 4.5, Eos % (Auto) 0.3, Baso % (Auto) 0.5, Absolute Neuts (auto) 7.7, Absolute Lymphs (auto) 1.25, Nucleated RBC % 0 Micro: Microbiology 04/03/22 08:10 Blood Culture (Wb) - Right Hand Blood Culture - Preliminary No growth in 48 hours. 04/03/22 08:04 Blood Culture (Wb) - Anticubital Right Blood Culture - Preliminary No growth in 48 hours. 04/03/22 14:17 Urine, Random Streptococcus pneumoniae Antigen (M - Final 04/03/22 14:17 Urine, Random Legionella Antigen - Final 04/03/22 07:50 Nasal Secretion SARS-CoV-2 Antigen (Rapid) - Final Radiography Diagnostic Testing: Radiology Impression Echocardiogram 04/04/22 10:36 Interpretation Summary Left ventricular systolic function is normal. The estimated ejection fraction is 55 %. Trivial mitral valve insufficiency. Trivial tricuspid valve insufficiency. Unable to estimate RV systolic pressure due to insufficient tricuspid regurgitant envelope. Transmitral doppler flow suggestive of impaired relaxation of left ventricle Ordering Physician: Josephine Winter Referring Physician: Lnaa Mullen Performed By: Claudio Shrestha RCS Physical Exam Const alert, oriented x3 and no apparent distress HEENT normocephalic, head/scalp atraumatic and hearing grossly normal bilaterally Eyes PERRL, EOMs intact bilaterally and conjunctivae normal Neck no lymphadenopathy and supple Resp Resp Narrative: diminished breath sounds bibasally, no wheezes or crackles. on room air. Cardio regular rhythm, S1 normal heart sound, S2 normal heart sound and no murmurs Cardio Narrative: tachycardia has improved. GI normal to inspection, nondistended, normoactive bowel sounds, soft to palpation, non-tender and non-distended Extremity normal to inspection, full ROM and no clubbing, cyanosis or edema Neuro oriented x3, CN's II-XII intact bilaterally, moves all extremities and no focal motor deficits Sensorium / Orientation: awake and alert Psych affect normal Assessment & Plan Assessment/Plan (1) Community acquired pneumonia: PLAN: Plan #Community acquired pneumonia * on IV levofloxacin and cefepime due to his history of splenectomy * blood cultures show no growth over 48 hours * on room air. Titrate oxygen as needed to maintain sats >90% * #Sinus tachycardia * TSH was normal, and 2D echo showed EF of 65%, with normal LV systolic function, and no regional wall motion abnormalities and impaired relaxation of left ventricle * sinus tachycardia seems to be chronic, and was present in 2020, from EMR. * sinus tachcyardia is improving; on metoprolol 25mg bid. * * #JESSICA * Cr today is 1.75 * despite all the fluid he has received, Cr hasnt fully trended down. * get renal USG * continue gentle hydration with IVF * #Hypertension: on amlodipine. Metoprolol added on due to sinus tachycardia #Type 2 diabetes mellitus * hold metformin and glimepiride o/a of JESSICA * ISS. Accuchecks ACHS * DVT prophylaxis: lovenox, renally dosed COde status: full code * Charges/Coding Visit Charges Inpatient E&M: 91707 Subs Hosp L2
[2022-04-05 11:25] LABS: Bedside Glucose 197 mg/dL (74-106)
[2022-04-05] MEDS: 0.9% Saline Lock 10 ML Syringe IV (14:15)
[2022-04-05 16:56] LABS: Bedside Glucose 149 mg/dL (74-106)
[2022-04-05 23:51] LABS: Bedside Glucose 192 mg/dL (74-106)
[2022-04-06] VITALS (7 sets, daily range): BP systolic 114–131; BP diastolic 62–71; PULSE 92–108; RESP 16; TEMP 37.3–37.4; O2SAT 93–95
[2022-04-06] MEDS: Insulin Lispro 100 UNIT/ML INSULN.PEN SC (06:27)
[2022-04-06] MEDS: 0.9% Saline Lock 10 ML Syringe IV (06:27)
[2022-04-06 06:34] LABS: Absolute Lymphocyte Count 2.14 X10^3/uL (0.83-4.51); Absolute Neutrophil Count 4.2 X10^3/uL (2.0-7.7); Basophil# 0.04 X10^3/uL; Basophil% 0.6 % (0-1); Eosinophil# 0.11 X10^3/uL; Eosinophils% 1.6 % (0-5); Hematocrit 37.8 % (40-54); Hemoglobin 12.8 g/dL (13.0-16.5); Lymphocyte # 2.14 X10^3/ul (0.83-4.51); Lymphocyte % 30.3 % (19-41); Mean Corp Hgb Conc 33.9 g/dL (32-36); Mean Corpuscular Hgb 29.2 pg (27.0-32.0); Mean Corpuscular Volume 86.1 fL (80-94); Mean Platelet Vol. 11.4 fl (6.2-12.0); Monocyte# 0.61 X10^3/uL; Monocyte% 8.6 % (0-10); NRBC Flagged by Analyzer 0 % (0-5); Neutrophil # 4.15 X10^3/uL (2.7-7.7); Neutrophil % 58.6 % (47-70); POSITIVE MORPHOLOGY YES; Platelet Count 236 K/mm3 (150-450); RBC Distribution Width SD 43.9 fl (35.1-43.9); Red Blood Count 4.39 M/mm3 (4.6-6.2); White Blood Count 7.1 K/mm3 (4.4-11.0)
[2022-04-06 06:36] LABS: Differential Indicated SCAN CRITERIA MET
[2022-04-06 06:52] LABS: Atypical Lymphocyte 1+ %; Differential Comment SCANNED
[2022-04-06 07:10] LABS: Anion Gap 10 (5-15); BUN 21 mg/dL (7-18); Calcium,Total 8.7 mg/dL (8.5-10.1); Chloride 99 mmol/L (98-107); Creatinine, Serum 1.62 mg/dL (0.70-1.30); EST Glomerular Filtration Rate 48 mL/min (>60); Est Glom Filt Rate - Afr Amer 58 mL/min (>60); Estimated Creatinine Clearance 61.65 ml/min; Glucose 168 mg/dL (74-106); Potassium 3.8 mmol/L (3.5-5.1); Sodium Level 131 mmol/L (136-145)
[2022-04-06 07:20] LABS: Bedside Glucose 181 mg/dL (74-106)
--- NOTE | 2022-04-06 07:22 | US_ITS ---
STUDY: RENAL ULTRASOUND - COMPLETE REASON FOR EXAM: Male, 51 years old. JESSICA TECHNIQUE: Ultrasound evaluation of the kidneys was performed with real-time and static albarado-scale imaging. COMPARISON: None. FINDINGS: RIGHT KIDNEY: Normal location of the right kidney, which is normal in size. The right kidney measures 12.5 cm x 6 cm x 6.1 cm. There is a normal cortex of the right kidney. The renal cortex measures 1.9 cm. There is no right renal mass or cyst. There are no right renal calculi. There is no right hydronephrosis. DISTAL RIGHT URETER: There is non-visualization of the distal right ureter. There is no demonstrated right ureterovesical junction calculus. There is a visualized right ureteral jet. LEFT KIDNEY: Normal location of the left kidney, which is normal in size. The left kidney measures 11.1 cm x 6 cm x 6.2 cm. There is a normal cortex of the left kidney. The renal cortex measures 1.9 cm. There is no left renal mass or cyst. There are no left renal calculi. There is no left hydronephrosis. DISTAL LEFT URETER: There is non-visualization of the distal left ureter. There is no demonstrated left ureterovesical junction calculus. There is a visualized left ureteral jet. BLADDER: The distended urinary bladder has a volume of 203 ml. There is a normal wall thickness of the distended urinary bladder. There is no demonstrated mass within the urinary bladder. There are no demonstrated bladder calculi. US/Kidney and Bladder IMPRESSION: Normal ultrasound of the kidneys and urinary bladder. Electronically Signed: Conrad Cohn MD at 11:56 EDT ,
[2022-04-06] MEDS: levoFLOXacin IV 750 MG/150 ML BAG 100 MG IV (09:01)
[2022-04-06] MEDS: Metoprolol Tartrate 25 MG Tablet PO (09:01)
[2022-04-06] MEDS: amLODIPine 5 MG Tablet PO (09:01)
[2022-04-06] MEDS: Enoxaparin 40 MG/0.4 ML Syringe SC (09:01)
--- NOTE | 2022-04-06 12:11 | DS.PCM_ITS ---
Providers Date of Admission: 04/03/22 Primary Care Physician: Dr. Lana Mullen MD Reason For Visit: COMMUNITY ACQUIRED PNEUMONIA Diagnosis Discharge Diagnosis (1) Community acquired pneumonia: Status: Acute Code(s): J18.9 - Pneumonia, unspecified organism Plan #Community acquired pneumonia * on IV levofloxacin and cefepime due to his history of splenectomy * blood cultures show no growth over 48 hours * on room air. Titrate oxygen as needed to maintain sats >90% * #Sinus tachycardia * TSH was normal, and 2D echo showed EF of 65%, with normal LV systolic function, and no regional wall motion abnormalities and impaired relaxation of left ventricle * sinus tachycardia seems to be chronic, and was present in 2020, from EMR. * sinus tachcyardia is improving; on metoprolol 25mg bid. * * #JESSICA * Cr today is 1.75 * despite all the fluid he has received, Cr hasnt fully trended down. * get renal USG * continue gentle hydration with IVF * #Hypertension: on amlodipine. Metoprolol added on due to sinus tachycardia #Type 2 diabetes mellitus * hold metformin and glimepiride o/a of JESSICA * ISS. Accuchecks ACHS * DVT prophylaxis: lovenox, renally dosed COde status: full code * Medications at Discharge Home Medications glimepiride 2 mg tablet 2 mg PO DAILY diabetes 12/08/21 amlodipine 5 mg tablet 1 tab PO DAILY blood pressure 04/03/22 metoprolol tartrate 25 mg tablet 25 mg PO BID #60 tabs 04/06/22 Hospital Course Operations None Procedures 2-D Echocardiogram Summary of Care Provided Minutes Spent on Discharge: 40 Hospital Course: AUBRIE LONGORIA, is a 51 M? with a PMh as outlined who presents via the ED on 04/03/2022 with a complaint of fever, increased sweating and chills. His symptoms had been going on for about 3 days prior to admission, with intermittent fevers and chills. He denied any chest pain, palpitations, dizziiness, nausea or vomiting or diarrhea. Review of systems was otherwise negative. He went to an urgent care center, but was sent to the ED because he looked too unwell. Vitals in the ED were blood pressure 149/81, pulse rate of 102 respiratory rate of 19.? He was saturating at 99% on room air.? Temperature was 98.2 Fahrenheit.? CBC showed WBC of 8.8 with hemoglobin of 15.2 and platelets of 344.? Chemistry showed sodium of 134 with potassium of 3.8 and creatinine of 1.84.? Baseline creatinine is unknown.? Initial troponin was 86.? Chest x-ray showed patchy infiltrate in the left upper lobe.? 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 He was admitted to be managed for community-acquired pneumonia. HE was started on IV levofloxacin and cefepime. Blood cultures were negative. He continued to have intermittent fevers, but white cell count remained normal. In light of his negative blood cultures and normal Wbc, as well as no cough, it was thought his symptoms were likely due to a viral infection. His Cr was also elevated and trended down slightly with fluids, but then plateaud. Renal USG was normal. Of note patient has sinus tachycardia which was chronic. TSH checked was within normal limits and 2D echo showed EF of 65%, with normal LV function. He was started on PO metoprolol 25mg bid which helped with sinus tachycardia. Patient remained stable and was discharged home on 04/06/2022. He was counseled to remain well hydrated, and to follow up with his PCP within 1 week for repeat BMP to follow up on the kidney function. He was discharged on PO metoprolol 25mg bid. Patient seen and examined prior to discharge. He had no active complaints and had an uneventful night. Review of systems was otherwise negative. Labs and vitals reviewed. Home meds reviewed and reconciled. Physical Exam Const alert, oriented x3 and no apparent distress General Appearance: cooperative and comfortable Orientation / Consciousness: awake Exam Limitations: no limitations HEENT normocephalic, head/scalp atraumatic and hearing grossly normal bilaterally Mouth: oral and palatal mucosa normal Eyes PERRL, EOMs intact bilaterally and conjunctivae normal Neck no lymphadenopathy and supple Resp Resp Narrative: diminished breath sounds bibasally, no wheezes or crackles. on room air. Cardio regular rhythm, S1 normal heart sound, S2 normal heart sound and no murmurs Cardio Narrative: tachycardia has improved markedly. GI normal to inspection, nondistended, normoactive bowel sounds, soft to palpation, non-tender and non-distended Extremity normal to inspection, full ROM and no clubbing, cyanosis or edema Skin no rashes or lesions noted Neuro oriented x3, CN's II-XII intact bilaterally, moves all extremities and no focal motor deficits Sensorium / Orientation: awake and alert Psych affect normal Weight / BMI Weight Weight: 248 lb 0.321 oz Body Mass Index (BMI) 32.3 ABG / Lab / Microbiology Data Result Diagrams: 04/06/22 05:25 04/06/22 05:25 Laboratory: Laboratory Results - last 24 hr 04/05/22 16:33: POC Glucose 149 H 04/05/22 22:50: POC Glucose 192 H 04/06/22 05:25: WBC 7.1, RBC 4.39 L, Hgb 12.8 L, Hct 37.8 L, MCV 86.1, MCH 29.2, MCHC 33.9, RDW Std Deviation 43.9, RDW Coeff of Demi 14.0, Plt Count 236, MPV 11 .4, Immature Gran % (Auto) 0.300, Neut % (Auto) 58.6, Lymph % (Auto) 30.3, Dorado % (Auto) 8.6, Eos % (Auto) 1.6, Baso % (Auto) 0.6, Absolute Neuts (auto) 4.2, Absolute Lymphs (auto) 2.14, Nucleated RBC % 0, Differential Comment SCANNED, Atypical Lymphocytes 1+ 04/06/22 05:25: Sodium 131 L, Potassium 3.8, Chloride 99, Carbon Dioxide 22.0, Anion Gap 10, BUN 21 H, Creatinine 1.62 H, Estim Creat Clear Calc 61.65, Est GFR (MDRD) Af Amer 58 L, Est GFR (MDRD) Non-Af 48 L, BUN/Creatinine Ratio 13.0, Glucose 168 H, Calcium 8.7 04/06/22 06:25: POC Glucose 181 H Microbiology: Microbiology 04/03/22 08:10 Blood Culture (Wb) - Right Hand Blood Culture - Preliminary No growth in 48 hours. 04/03/22 08:04 Blood Culture (Wb) - Anticubital Right Blood Culture - Preliminary No growth in 48 hours. 04/03/22 14:17 Urine, Random Streptococcus pneumoniae Antigen (M - Final 04/03/22 14:17 Urine, Random Legionella Antigen - Final 04/03/22 07:50 Nasal Secretion SARS-CoV-2 Antigen (Rapid) - Final Radiography Diagnostic Testing: Radiology Impression Renal Ultrasound 04/06/22 07:22 IMPRESSION: Normal ultrasound of the kidneys and urinary bladder. Electronically Signed: Conrad Cohn MD at 11:56 EDT , D/C Instructions Discharge Diet: Low fat / Low cholesterol Discharge Activity: Return to Normal Activity Weight Bearing Status: Weight bearing as tolerated Call your doctor if you observe: Fever of 101 or Higher, Shortness of breath, Dizziness, Swelling in the ankles, Chest pain and Increased palpitations (irregular heartbeat) Meaningful Use Info Meaningful Use Diagnoses (Choose all that apply): None applicable Discharge Plan Admission Admit Date/Time: 04/03/22 10:19 Primary Reason for Your Visit: community acquired pneumonia, JESSICA, sinus tachycardia Attending Provider: Josephine Winter Primary Care Provider: Lana Mullen Instructions Additional Instructions / Restrictions: stop taking metformin until repeat BMP shows kidney function has normalised on follow up with PCP Discharge Orders/Prescriptions Prescriptions: New metoprolol tartrate 25 mg tablet 25 mg PO BID Qty: 60 1RF Continued glimepiride 2 mg tablet 2 mg PO DAILY amlodipine 5 mg tablet 1 tab PO DAILY Discontinued metformin 1,000 mg tablet 1,000 mg PO BID Referrals / Follow Up: Lana Mullen MD [Primary Care Provider] - Within 1 Week Disposition Disposition (needs filled in before D/C Order can be placed): Home, Self Care Charges/Coding Visit Charges Inpatient E&M: 23148 Disch Hosp
--- NOTE | 2022-04-06 13:46 | NURSING ---
CALLED PT AT HOME AND PER DR MARINELLI, INSTRUCTED HIM TO STOP THE METFORMIN UNTIL HIS LAB WORK IS REPEATED AT FOLLOW UP APPT W/PCP. PRESCRIPTION FOR METOPROLOL HAS BEEN CALLED TO [facility] [place]
== END 2022-04-06 12:49 | disposition home or self-care (01) | DRG 139 ==
LOC: ED 10:16 → MS3 10:40
PROVIDERS: Admitting Provider Student in an Organized Health Care Education/Training Program; Emergency Provider Emergency Medicine; PCP Internal Medicine; Visit Provider Student in an Organized Health Care Education/Training Program
DX: J18.9 Pneumonia, unspecified organism (principal); N17.9 Acute kidney failure, unspecified; E11.9 Type 2 diabetes mellitus without complications; I10 Essential (primary) hypertension; F17.210 Nicotine dependence, cigarettes, uncomplicated; E86.0 Dehydration; R77.8 Other specified abnormalities of plasma proteins; Z20.822 Contact with and (suspected) exposure to COVID-19; Z28.310 Unvaccinated for COVID-19; Z79.84 Long term (current) use of oral hypoglycemic drugs; Z79.899 Other long term (current) drug therapy; Z90.81 Acquired absence of spleen
CPT/HCPCS: 36415; 71045; 76770; 80048; 80053; 81001; 82962; 83605; 84443; 84484; 85025; 87040; 87449; 87641; 87811; 93005; 93306; 99251; 99283; 99406; J7030; J7040; J7050; A4216; G0463; J0696